=== PATIENT | male | born 1980 | race African-American/Black ===

== ENCOUNTER 2020-10-09 17:21 | Emergency (ER) | payer OTHER ==
[~2020-10-09] VITALS: Ht 172.7 cm; Wt 83.9 kg
[2020-10-09 18:48] VITALS: BP 127/72
== END 2020-10-09 18:49 | disposition home or self-care (01) ==
LOC: M.ERS 17:21
DX: U07.1 COVID-19 (principal)

== ENCOUNTER 2020-10-15 11:42 | Emergency (ER) | payer OTHER ==
[~2020-10-15] VITALS: Ht 175.3 cm; Wt 83.9 kg
[2020-10-15 13:08] VITALS: BP 114/81
== END 2020-10-15 13:10 | disposition home or self-care (01) ==
LOC: M.ERS 11:42
DX: Z20.822 Contact with and (suspected) exposure to COVID-19 (principal)